=== PATIENT | female | born 1940 | race Two or more races ===

== ENCOUNTER 2024-04-16 08:45 | Inpatient (IN) | payer OTHER ==
[~2024-04-16] VITALS: Ht 91.4 cm; Wt 51.3 kg
[2024-04-16 11:03] VITALS: BP 150/83
[2024-04-16] MEDS ORDERED: [UNRECOGNIZED DRUG - OTHER] (11:04)
[2024-04-16] MEDS ORDERED: COZAAR100 MG PO (11:04)
[2024-04-16] MEDS ORDERED: TREXALL5 MG (11:05)
[2024-04-16] MEDS ORDERED: SIMVASTATIN10 MG PO (11:06)
[2024-04-16 11:44] LABS: RH POSITIVE
[2024-04-16] MEDS ORDERED: NORVASC2.5 MG PO (13:41)
[2024-04-19] MEDS ORDERED: RINGERS SOLUTION,LACTATED 1,000 ML IV SCH (15:15)
[2024-04-19] MEDS ORDERED: MORPHINE SULFATE 4 MG/ML CARTRIDGE IV PRN (15:15)
[2024-04-19] MEDS ORDERED: KETOROLAC TROMETHAMINE 30 MG VIAL IV ONE (15:15)
[2024-04-19] MEDS ORDERED: THROMBIN,HU/FIBRINOGEN/CALCIUM 4 ML SYRINGE TOP ONE (15:45)
[2024-04-19] MEDS ORDERED: METRONIDAZOLE/SODIUM CHLORIDE 500 MG/100 ML PIGGYBACK IV ONE (15:45)
[2024-04-19] MEDS ORDERED: CEFAZOLIN SODIUM 1,000 MG VIAL IV ONE (15:45)
[2024-04-19] MEDS ORDERED: HEMOSTATIC MATRIX WITH THROMBIN KIT TOP ONE (15:45)
[2024-04-19] MEDS ORDERED: hydrALAZINE HCL 20 MG VIAL IV ONE (16:00)
[2024-04-19] MEDS ORDERED: MORPHINE SULFATE 4 MG/ML VIAL IV ONE (16:05)
[2024-04-19 16:37] LABS: HEMATOCRIT 36.3 % (36.0-45.00); HEMOGLOBIN 12.3 g/dL (12.0-15.00); MEAN CORPUSCULAR HEMOGLOBIN 30.1 pg (27.00-32.0); MEAN CORPUSCULAR HGB CONC 33.8 g/dl (32.0-36.0); PLATELET COUNT 338 K/uL (150-450); RED BLOOD COUNT 4.08 M/uL (4.00-6.00); RED CELL DISTRIBUTION WIDTH 13.6 % (11.5-14.5)
[2024-04-19 17:00] LABS: ALBUMIN 2.7 gm/dL (3.4-5.0); CREATININE SERUM 0.58 mg/dL (0.55-1.02); GFR 99.28; POTASSIUM 3.42 mEq/L (3.5-5.1)
[2024-04-19] MEDS ORDERED: METOCLOPRAMIDE HCL 5 MG/ML VIAL IV SCH (17:00)
[2024-04-19] MEDS ORDERED: CEFAZOLIN SODIUM 1,000 MG VIAL IV SCH (17:00)
[2024-04-19] MEDS ORDERED: SIMETHICONE 125 MG CAPSULE PO SCH (17:00)
[2024-04-19] MEDS ORDERED: ACETAMINOPHEN 500 MG GEL..CAP PO SCH (18:00)
[2024-04-19] MEDS ORDERED: FAMOTIDINE/PF 20 MG/2 ML VIAL IV PUSH SCH (21:00)
[2024-04-19] MEDS ORDERED: GABAPENTIN 300 MG CAPSULE PO SCH (21:00)
[2024-04-19] MEDS ORDERED: DOCUSATE SODIUM 100MG CAP PO SCH (21:00)
[2024-04-19 21:59] VITALS: BP 114/87; O2SAT 95
[2024-04-20] VITALS: BP 109/66; O2SAT 96
[2024-04-20 06:45] LABS: HEMOGLOBIN 11.6 g/dL (12.0-15.00); MEAN CELL VOLUME 88.2 fL (80.00-100.00); MEAN CORPUSCULAR HEMOGLOBIN 30.1 pg (27.00-32.0); MEAN CORPUSCULAR HGB CONC 34.1 g/dl (32.0-36.0); PLATELET COUNT 330 K/uL (150-450); RED BLOOD COUNT 3.85 M/uL (4.00-6.00); RED CELL DISTRIBUTION WIDTH 13.8 % (11.5-14.5)
[2024-04-20 07:12] LABS: ALBUMIN 2.7 gm/dL (3.4-5.0); CALCIUM 8.7 mg/dL (8.5-10.1); CREATININE SERUM 0.48 mg/dL (0.55-1.02); GFR 123.51; PHOSPHOROUS 3.8 mg/dL (2.5-4.9); POTASSIUM 3.84 mEq/L (3.5-5.1)
[2024-04-20] MEDS ORDERED: ENOXAPARIN SODIUM 30 MG/0.3 ML SYRINGE SUBCUTANEO SCH (09:00)
[2024-04-20] MEDS ORDERED: DEXTROSE 50 % IN WATER 0.5 G/ML DISP.SYRIN IV PRN (09:15)
[2024-04-20] MEDS ORDERED: INSULIN LISPRO 1,000 UNIT/10 ML UNITS SUBCUTANEO PRN (09:15)
[2024-04-20 09:37] VITALS: BP 113/69; O2SAT 96
[2024-04-20] MEDS ORDERED: AMLODIPINE BESYLATE 2.5 MG TABLET PO NR (11:00)
[2024-04-20] MEDS ORDERED: LOSARTAN POTASSIUM 100 MG TABLET PO NR (11:00)
[2024-04-20 16:00] VITALS: BP 124/74; O2SAT 96
[2024-04-20] MEDS ORDERED: TRAMADOL HCL 50 MG TABLET PO SCH (18:00)
[2024-04-21 00:18] VITALS: BP 119/65; O2SAT 94
[2024-04-21 08:28] VITALS: BP 127/73; O2SAT 98
[2024-04-21] MEDS ORDERED: LOSARTAN POTASSIUM 100 MG TABLET PO SCH (09:00)
[2024-04-21] MEDS ORDERED: AMLODIPINE BESYLATE 2.5 MG TABLET PO SCH (09:00)
== END 2024-04-21 14:32 | disposition home or self-care (01) | DRG 741 ==
LOC: O/R 04-19 06:30 → SURG 04-19 06:30 → OB/GYN 04-19 08:45 → SURG 04-19 19:02 → OB/GYN 04-19 20:15 → SURG 04-21 14:32
PROVIDERS: Obstetrics & Gynecology; ADMIT Obstetrics & Gynecology Gynecologic Oncology; ATTEND Obstetrics & Gynecology Gynecologic Oncology
PROC: 0UT70ZZ Resection of Bilateral Fallopian Tubes, Open Approach (ICD-10-PCS; 2024-04-19)
PROC: 07BC0ZZ Excision of Pelvis Lymphatic, Open Approach (ICD-10-PCS; 2024-04-19)
PROC: 0UT20ZZ Resection of Bilateral Ovaries, Open Approach (ICD-10-PCS; 2024-04-19)
PROC: 0UT90ZZ Resection of Uterus, Open Approach (ICD-10-PCS; principal; 2024-04-19 20:15)
DX: C54.1 Malignant neoplasm of endometrium (principal); Z20.822 Contact with and (suspected) exposure to COVID-19; C57.3 Malignant neoplasm of parametrium

== ENCOUNTER 2024-08-29 17:51 | Inpatient (IN) | payer OTHER ==
[~2024-08-29] VITALS: Ht 152.4 cm; Wt 83.0 kg
[~2024-08-29 17:51] MED LIST: COZAAR100 MG PO; NORVASC2.5 MG PO; SIMVASTATIN10 MG PO; TREXALL5 MG; [UNRECOGNIZED DRUG - OTHER]
[2024-08-29] MEDS ORDERED: 0.9 % SODIUM CHLORIDE 1,000 ML IV SCH (18:15)
[2024-08-29 18:31] LABS: HEMATOCRIT 43.2 % (36.0-45.00); HEMOGLOBIN 13.7 g/dL (12.0-15.00); MEAN CELL VOLUME 87.2 fL (80.00-100.00); MEAN CORPUSCULAR HEMOGLOBIN 27.6 pg (27.00-32.0); MEAN CORPUSCULAR HGB CONC 31.7 g/dl (32.0-36.0); PLATELET COUNT 437 K/uL (150-450); RED BLOOD COUNT 4.96 M/uL (4.00-6.00)
[2024-08-29 19:04] LABS: ABG PH 7.427 (7.35-7.45); ABG PO2 71.9 mmHg (80-100); ABG pCO2 46.8 mmHg (35-45); BASE EXCESS 4.9 mmol/l; BICARBONATE 30.2 mmol/l (23-25); SaO2 94.9 %; Tco2 31.6 mmol/l; o2 21 %
[2024-08-29 19:05] LABS: allen test SATISFACTORY; mode ROOM AIR; puncture site RADIAL RIGHT
[2024-08-29 19:07] LABS: ALBUMIN 2.8 gm/dL (3.4-5.0); BILIRUBIN TOTAL 0.36 mg/dL (0.3-1.2); CALCIUM 10.1 mg/dL (8.5-10.1); CREATININE SERUM 0.42 mg/dL (0.55-1.02); GFR 144.09; GLOBULINA 3.9 G/DL (2.4-3.5); POTASSIUM 4.03 mEq/L (3.5-5.1); TOTAL PROTEIN 6.7 gm/dL (6.4-8.2)
[2024-08-29] MEDS ORDERED: ACETAMINOPHEN 500 MG GEL..CAP PO ONE ×2 (21:45→21:59)
[2024-08-29] MEDS ORDERED: METHYLPREDNISOLONE SOD SUCC 40 MG VIAL IV SCH (22:05)
[2024-08-29] MEDS ORDERED: LEVALBUTEROL HCL 1.25 MG/3 ML SOLUTION IH SCH (22:06)
[2024-08-29] MEDS ORDERED: IPRATROPIUM BROMIDE 0.5 MG/2.5 ML AMPUL.NEB IH SCH (22:13)
[2024-08-29] MEDS ORDERED: ACETAMINOPHEN 500 MG GEL..CAP PO PRN (22:15)
[2024-08-29 23:49] LABS: COVID-19 AG NEGATIVE (NEGATIVE)
[2024-08-29 23:52] LABS: INFLUENZA A AG NEGATIVE (NEGATIVE)
[2024-08-30] VITALS (7 sets, daily range): BP systolic 110–138; BP diastolic 60–67; O2SAT 96–98
[2024-08-30] MEDS ORDERED: PIPERACILLIN/TAZOBACTAM SODIUM 3.375 GM in DEXTROSE 5 % IN WATER 100 ML IV SCH
[2024-08-30] MEDS ORDERED: FAMOTIDINE/PF 20 MG in 0.9 % SODIUM CHLORIDE 8 ML IV PUSH SCH (09:00)
[2024-08-30] MEDS ORDERED: LOSARTAN POTASSIUM 100 MG TABLET PO SCH (09:00)
[2024-08-30 10:54] LABS: D DIMER 1.55 MG/L; INR 1.02; PROTHROMBIN TIME 11.1 SECONDS (9.0-11.5)
[2024-08-30 11:21] LABS: COVID-19 AG NEGATIVE (NEGATIVE)
[2024-08-30] MEDS ORDERED: PIPERACILLIN/TAZOBACTAM SODIUM 3.375 GM VIAL IV ONE (16:33)
[2024-08-30] MEDS ORDERED: SIMVASTATIN 10 MG TABLET PO SCH (17:00)
[2024-08-30] MEDS ORDERED: LORazepam 2 MG/ML VIAL IV ONE (23:45)
[2024-08-31] VITALS (9 sets, daily range): BP systolic 134–171; BP diastolic 70–83; O2SAT 96–100
[2024-08-31] MEDS ORDERED: Cyanocobalamin/Mecobalamin 1 TAB.SL SL NR (14:30)
[2024-08-31] MEDS ORDERED: VITAMIN B COMPLEX/LYSINE 15 ML BLIST.PACK PO NR (14:30)
[2024-08-31] MEDS ORDERED: FOLIC ACID 1 MG TABLET PO NR (14:30)
[2024-08-31 14:59] LABS: URINE APPEARANCE Clear; URINE BILIRRUBIN Negative (NEGATIVE); URINE BLOOD Small; URINE COLOR Yellow; URINE GLUCOSE Negative (NEGATIVE); URINE LEUKOCYTE Negative; URINE NITRATE Negative; URINE PROTEIN 30 (NEGATIVE); URINE UROBILINOGEN 0.2 E.U./dl
[2024-08-31 15:02] LABS: URINE BACTERIA 460.2 uL (0.0-1933); URINE CAST 2.65 uL (0.0-1.40); URINE WBC 8.8 uL (0.0-23.2)
[2024-08-31 15:26] LABS: URINE KETONE 40 (NEGATIVE)
[2024-08-31] MEDS ORDERED: SOD FERRIC GLUC COMPLX/SUCROSE 62.5 MG/5 ML AMPUL IV ONE (16:34)
[2024-08-31] MEDS ORDERED: PIPERACILLIN/TAZOBACTAM SODIUM 3.375 GM VIAL IV ONE (16:35)
[2024-08-31] MEDS ORDERED: SOD FERRIC GLUC COMPLX/SUCROSE 62.5 MG in 0.9 % SODIUM CHLORIDE 50 ML IV SCH (17:00)
[2024-08-31] MEDS ORDERED: LACTOBACILLUS ACIDOPHILUS 1 CAP CAP PO SCH (17:00)
[2024-08-31] MEDS ORDERED: PYRIDOSTIGMINE BROMIDE 60 MG TABLET PO SCH (17:00)
[2024-08-31] MEDS ORDERED: AMINO ACIDS 1 EACH TABLET PO SCH (17:00)
[2024-09-01] VITALS (7 sets, daily range): BP systolic 115–144; BP diastolic 65–81; O2SAT 91–99
[2024-09-01 07:36] LABS: HEMATOCRIT 36.5 % (36.0-45.00); HEMOGLOBIN 11.9 g/dL (12.0-15.00); MEAN CELL VOLUME 87.3 fL (80.00-100.00); MEAN CORPUSCULAR HEMOGLOBIN 28.5 pg (27.00-32.0); MEAN CORPUSCULAR HGB CONC 32.6 g/dl (32.0-36.0); PLATELET COUNT 326 K/uL (150-450); RED BLOOD COUNT 4.18 M/uL (4.00-6.00); RED CELL DISTRIBUTION WIDTH 16.6 % (11.5-14.5)
[2024-09-01 08:16] LABS: ALBUMIN 2.5 gm/dL (3.4-5.0); BILIRUBIN TOTAL 0.36 mg/dL (0.3-1.2); CALCIUM 9.2 mg/dL (8.5-10.1); MAGNESIUM 1.9 mg/dL (1.8-2.4); PHOSPHOROUS 2.5 mg/dL (2.5-4.9); POTASSIUM 3.22 mEq/L (3.5-5.1); TOTAL PROTEIN 5.5 gm/dL (6.4-8.2)
[2024-09-01 08:56] LABS: GFR 320.64
[2024-09-01] MEDS ORDERED: Cyanocobalamin/Mecobalamin 1 TAB.SL SL SCH (09:00)
[2024-09-01] MEDS ORDERED: FOLIC ACID 1 MG TABLET PO SCH (09:00)
[2024-09-01] MEDS ORDERED: ENOXAPARIN SODIUM 40 MG/0.4 ML SYRINGE SUBCUTANEO SCH (09:00)
[2024-09-01] MEDS ORDERED: VITAMIN B COMPLEX/LYSINE 15 ML BLIST.PACK PO SCH (09:00)
[2024-09-01 09:02] LABS: C-REACTIVE PROTEIN 0.93 MG/DL (0.00-0.29); CREATININE SERUM 0.21 mg/dL (0.55-1.02)
[2024-09-02 00:42] VITALS: O2SAT 98
[2024-09-02 02:10] VITALS: BP 153/78; O2SAT 100
[2024-09-02 08:00] VITALS: BP 157/77; O2SAT 98
[2024-09-02] MEDS ORDERED: DEXTROSE 5 %-0.45 % SOD CHLORD 1,000 ML IV SCH (14:00)
[2024-09-02 16:49] VITALS: O2SAT 96
[2024-09-02 17:19] VITALS: BP 164/86
[2024-09-02 19:31] VITALS: O2SAT 99
[2024-09-03] VITALS (9 sets, daily range): BP systolic 160–165; BP diastolic 69–81; O2SAT 97–100
[2024-09-03 07:02] LABS: ALBUMIN 2.6 gm/dL (3.4-5.0); BILIRUBIN TOTAL 0.57 mg/dL (0.3-1.2); CALCIUM 9.7 mg/dL (8.5-10.1); GLOBULINA 3.1 G/DL (2.4-3.5); TOTAL PROTEIN 5.7 gm/dL (6.4-8.2)
[2024-09-03 07:34] LABS: CREATININE SERUM 0.19 mg/dL (0.55-1.02); GFR 359.91
[2024-09-03 07:36] LABS: POTASSIUM 2.81 mEq/L (3.5-5.1)
[2024-09-03] MEDS ORDERED: POTASSIUM CHLORIDE IN WATER 40 MEQ/100 ML PIGGYBAG IV STA (10:15)
[2024-09-03] MEDS ORDERED: AMPICILLIN SODIUM/SULBACTAM NA 3,000 MG VIAL IV SCH (18:00)
[2024-09-04] VITALS (9 sets, daily range): BP systolic 150–175; BP diastolic 75–85; O2SAT 93–98
[2024-09-04 14:58] LABS: HEMATOCRIT 43.1 % (36.0-45.00); HEMOGLOBIN 13.8 g/dL (12.0-15.00); MEAN CELL VOLUME 87.5 fL (80.00-100.00); PLATELET COUNT 277 K/uL (150-450); RED BLOOD COUNT 4.92 M/uL (4.00-6.00); RED CELL DISTRIBUTION WIDTH 16.3 % (11.5-14.5)
[2024-09-04 15:22] LABS: ALBUMIN 2.6 gm/dL (3.4-5.0); ALKALINE PHOSPHATASE 82 U/L (50-136); ALT/SGPT 62 U/L (12-78); AST/SGOT 31 U/L (15-37); BILIRUBIN TOTAL 0.59 mg/dL (0.3-1.2); BLOOD UREA NITROGEN 15 mg/dL (7-18); CALCIUM 9.3 mg/dL (8.5-10.1); CHLORIDE 100 mmol/L (98-107); GLOBULINA 3.2 G/DL (2.4-3.5); GLUCOSE FASTING 120 mg/dL (65-100); OSMOLALITY SERUM 289 MOSM/KG (275-295); POTASSIUM 3.02 mEq/L (3.5-5.1); SODIUM 144 mmol/L (136-145); TOTAL PROTEIN 5.8 gm/dL (6.4-8.2)
[2024-09-04 16:34] LABS: ANION GAP 4 (10.0-20.0); BUN CREA RATIO 100 (7.0-25.0); C-REACTIVE PROTEIN 0.85 MG/DL (0.00-0.29); GFR 472.81; PHOSPHOROUS 1.4 mg/dL (2.5-4.9)
[2024-09-04 16:35] LABS: CARBON DIOXIDE 43 mEq/L (21-32)
[2024-09-04] MEDS ORDERED: POTASSIUM PHOS,M-BASIC-D-BASIC 3 MM/ML VIAL IV NR (17:00)
[2024-09-04 18:58] LABS: CREATININE SERUM < 0.15 mg/dL (0.55-1.02)
[2024-09-04 23:40] LABS: ABG pCO2 55.1 mmHg (35-45)
[2024-09-04 23:41] LABS: BASE EXCESS 14.9 mmol/l; Tco2 42.7 mmol/l; o2 21 %
[2024-09-04 23:42] LABS: ABG PO2 78.4 mmHg (80-100); allen test SATISFACTORY; mode ROOM AIR; puncture site RADIAL RIGHT
[2024-09-05] VITALS (10 sets, daily range): BP systolic 127–174; BP diastolic 56–100; O2SAT 93–100
[2024-09-05] MEDS ORDERED: hydrALAZINE HCL 25 MG TABLET PO SCH (01:00)
[2024-09-05] MEDS ORDERED: FAMOTIDINE/PF 20 MG in 0.9 % SODIUM CHLORIDE 8 ML IV PUSH SCH (01:38)
[2024-09-05 06:25] LABS: URINE APPEARANCE Clear; URINE BILIRRUBIN Negative (NEGATIVE); URINE BLOOD Moderate; URINE COLOR Yellow; URINE GLUCOSE Negative (NEGATIVE); URINE KETONE 15 (NEGATIVE); URINE LEUKOCYTE Negative; URINE NITRATE Negative; URINE PROTEIN Trace (NEGATIVE); URINE UROBILINOGEN 0.2 E.U./dl
[2024-09-05 06:29] LABS: URINE EPITHELIAL CELLS 4.7 uL (0.0-38.8); URINE RBC 630.1 uL (0.0-20.8); URINE WBC 11.3 uL (0.0-23.2)
[2024-09-05 07:49] LABS: URINE BACTERIA 3.6 uL (0.0-1933); URINE CAST 0.14 uL (0.0-1.40); URINE YEAST MANY /hpf
[2024-09-05] MEDS ORDERED: ACETAZOLAMIDE SODIUM IV SCH (10:13)
[2024-09-05] MEDS ORDERED: SODIUM CHLORIDE 0.9% IV SCH (10:13)
[2024-09-05 13:11] LABS: HEMOGLOBIN 14.9 g/dL (12.0-15.00); MEAN CELL VOLUME 86.6 fL (80.00-100.00); MEAN CORPUSCULAR HEMOGLOBIN 28.6 pg (27.00-32.0); MEAN CORPUSCULAR HGB CONC 33.1 g/dl (32.0-36.0); PLATELET COUNT 263 K/uL (150-450); RED CELL DISTRIBUTION WIDTH 16.8 % (11.5-14.5)
[2024-09-05 13:29] LABS: LIPASE 14 U/L (13-75)
[2024-09-05 13:30] LABS: AMYLASE 14 U/L (25-115)
[2024-09-05 13:39] LABS: BLOOD UREA NITROGEN 12 mg/dL (7-18); CARBON DIOXIDE 38 mEq/L (21-32); CHLORIDE 97 mmol/L (98-107); GLUCOSE FASTING 145 mg/dL (65-100); OSMOLALITY SERUM 282 MOSM/KG (275-295); SODIUM 140 mmol/L (136-145)
[2024-09-05 13:59] LABS: ANION GAP 8 (10.0-20.0); BUN CREA RATIO 80 (7.0-25.0); CREATININE SERUM < 0.15 mg/dL (0.55-1.02); GFR 472.81
[2024-09-05 14:00] LABS: PHOSPHOROUS 1.9 mg/dL (2.5-4.9)
[2024-09-05] MEDS ORDERED: POTASSIUM PHOS,M-BASIC-D-BASIC 18 MM in 0.9 % SODIUM CHLORIDE 250 ML IV NR (14:30)
[2024-09-05] MEDS ORDERED: POTASSIUM CHLORIDE IN WATER 100 ML IV NR (14:30)
[2024-09-05] MEDS ORDERED: POTASSIUM PHOS,M-BASIC-D-BASIC 18 MM in 0.9 % SODIUM CHLORIDE 500 ML IV NR (16:00)
[2024-09-05] MEDS ORDERED: ACETAZOLAMIDE SODIUM 500 MG VIAL IV SCH (17:00)
[2024-09-06] VITALS (10 sets, daily range): BP systolic 90–115; BP diastolic 55–72; O2SAT 95–100
[2024-09-06 11:55] LABS: HEMATOCRIT 43.4 % (36.0-45.00); MEAN CORPUSCULAR HGB CONC 32.2 g/dl (32.0-36.0); PLATELET COUNT 248 K/uL (150-450); RED BLOOD COUNT 4.99 M/uL (4.00-6.00); RED CELL DISTRIBUTION WIDTH 16.6 % (11.5-14.5)
[2024-09-06 15:31] LABS: CALCIUM 8.9 mg/dL (8.5-10.1); MAGNESIUM 1.8 mg/dL (1.8-2.4); PHOSPHOROUS 2.7 mg/dL (2.5-4.9)
[2024-09-06 15:52] LABS: GFR 250.6
[2024-09-06 15:55] LABS: POTASSIUM 2.85 mEq/L (3.5-5.1)
[2024-09-06 18:02] LABS: CREATININE SERUM 0.26 mg/dL (0.55-1.02)
[2024-09-07] VITALS (10 sets, daily range): BP systolic 103–131; BP diastolic 59–83; O2SAT 94–100
[2024-09-07 06:38] LABS: HEMATOCRIT 41.2 % (36.0-45.00); HEMOGLOBIN 13.3 g/dL (12.0-15.00); MEAN CORPUSCULAR HEMOGLOBIN 28.4 pg (27.00-32.0); MEAN CORPUSCULAR HGB CONC 32.2 g/dl (32.0-36.0); PLATELET COUNT 177 K/uL (150-450); RED BLOOD COUNT 4.68 M/uL (4.00-6.00); RED CELL DISTRIBUTION WIDTH 16.9 % (11.5-14.5)
[2024-09-07] MEDS ORDERED: PYRIDOSTIGMINE BROMIDE 60 MG TABLET PO SCH (10:07)
[2024-09-07] MEDS ORDERED: FAMOTIDINE/PF 20 MG/2 ML VIAL ONE (10:09)
[2024-09-07 12:27] LABS: ALBUMIN 2.3 gm/dL (3.4-5.0); BILIRUBIN TOTAL 0.67 mg/dL (0.3-1.2); CALCIUM 9.4 mg/dL (8.5-10.1); GFR 250.6; GLOBULINA 3.5 G/DL (2.4-3.5); MAGNESIUM 1.9 mg/dL (1.8-2.4); PHOSPHOROUS 2.3 mg/dL (2.5-4.9); POTASSIUM 3.21 mEq/L (3.5-5.1); TOTAL PROTEIN 5.8 gm/dL (6.4-8.2)
[2024-09-07 12:28] LABS: CREATININE SERUM 0.26 mg/dL (0.55-1.02)
[2024-09-07] MEDS ORDERED: FLUCONAZOLE IN NACL,ISO-OSM 400 MG/200 ML PIGGYBAG IV NR (13:30)
[2024-09-07 15:31] LABS: PH,URINE 8.5 (5.0-8.0); URINE APPEARANCE Turbid; URINE BILIRRUBIN Negative (NEGATIVE); URINE BLOOD Trace; URINE COLOR Dark Yellow; URINE GLUCOSE Negative (NEGATIVE); URINE KETONE Negative (NEGATIVE); URINE LEUKOCYTE Small; URINE NITRATE Negative; URINE PROTEIN 30 (NEGATIVE); URINE UROBILINOGEN 0.2 E.U./dl
[2024-09-07 15:34] LABS: URINE BACTERIA 358.4 uL (0.0-1933); URINE EPITHELIAL CELLS 3.7 uL (0.0-38.8); URINE RBC 55.3 uL (0.0-20.8); URINE WBC 86.7 uL (0.0-23.2)
[2024-09-07 15:36] LABS: URINE CAST 0.58 uL (0.0-1.40)
[2024-09-07] MEDS ORDERED: POTASSIUM CHLORIDE IN WATER 100 ML IV NR (17:00)
[2024-09-08] VITALS (11 sets, daily range): BP systolic 112–135; BP diastolic 64–79; O2SAT 95–100
[2024-09-08] MEDS ORDERED: FLUCONAZOLE IN NACL,ISO-OSM 100 ML IV SCH (12:00)
[2024-09-08] MEDS ORDERED: PYRIDOSTIGMINE BROMIDE 60 MG TABLET PO SCH (21:00)
[2024-09-09] VITALS (9 sets, daily range): BP systolic 101–130; BP diastolic 55–68; O2SAT 96–100
[2024-09-09] MEDS ORDERED: PYRIDOSTIGMINE BROMIDE 60 MG TABLET PO SCH (09:00)
[2024-09-10] VITALS (9 sets, daily range): BP systolic 104–134; BP diastolic 58–78; O2SAT 98–100
[2024-09-10 07:03] LABS: HEMATOCRIT 35.7 % (36.0-45.00); HEMOGLOBIN 11.7 g/dL (12.0-15.00); MEAN CELL VOLUME 87.5 fL (80.00-100.00); MEAN CORPUSCULAR HEMOGLOBIN 28.8 pg (27.00-32.0); MEAN CORPUSCULAR HGB CONC 32.8 g/dl (32.0-36.0); PLATELET COUNT 325 K/uL (150-450); RED BLOOD COUNT 4.07 M/uL (4.00-6.00); RED CELL DISTRIBUTION WIDTH 17.1 % (11.5-14.5)
[2024-09-10 07:47] LABS: ALBUMIN 2.1 gm/dL (3.4-5.0); BILIRUBIN TOTAL 0.33 mg/dL (0.3-1.2); CALCIUM 9.3 mg/dL (8.5-10.1); GLOBULINA 3.2 G/DL (2.4-3.5); MAGNESIUM 2.3 mg/dL (1.8-2.4); PHOSPHOROUS 3.6 mg/dL (2.5-4.9); POTASSIUM 3.83 mEq/L (3.5-5.1); TOTAL PROTEIN 5.3 gm/dL (6.4-8.2)
[2024-09-10 07:55] LABS: GFR 320.64
[2024-09-10 07:56] LABS: C-REACTIVE PROTEIN 4.47 MG/DL (0.00-0.29); CREATININE SERUM 0.21 mg/dL (0.55-1.02)
[2024-09-10] MEDS ORDERED: FAMOTIDINE/PF 20 MG/2 ML VIAL IV SCH (21:00)
[2024-09-11] VITALS (9 sets, daily range): BP systolic 125–150; BP diastolic 67–71; O2SAT 92–100
[2024-09-12] VITALS (8 sets, daily range): BP systolic 81–128; BP diastolic 52–55; O2SAT 96–100
[2024-09-12 08:33] LABS: HEMOGLOBIN 11.8 g/dL (12.0-15.00); MEAN CELL VOLUME 88.3 fL (80.00-100.00); MEAN CORPUSCULAR HEMOGLOBIN 28.2 pg (27.00-32.0); MEAN CORPUSCULAR HGB CONC 31.9 g/dl (32.0-36.0); PLATELET COUNT 336 K/uL (150-450); RED CELL DISTRIBUTION WIDTH 17.2 % (11.5-14.5)
[2024-09-12] MEDS ORDERED: PREDNISONE 20 MG TABLET PO SCH (09:00)
[2024-09-12 09:18] LABS: BILIRUBIN TOTAL 0.32 mg/dL (0.3-1.2); CALCIUM 9.6 mg/dL (8.5-10.1); GLOBULINA 3.1 G/DL (2.4-3.5); MAGNESIUM 2.5 mg/dL (1.8-2.4); PHOSPHOROUS 3.4 mg/dL (2.5-4.9); POTASSIUM 3.57 mEq/L (3.5-5.1); TOTAL PROTEIN 5.1 gm/dL (6.4-8.2)
[2024-09-12 09:19] LABS: C-REACTIVE PROTEIN 2.84 MG/DL (0.00-0.29); CREATININE SERUM 0.2 mg/dL (0.55-1.02); GFR 339.23
[2024-09-13] VITALS (10 sets, daily range): BP systolic 106–120; BP diastolic 65–73; O2SAT 90–100
[2024-09-14] VITALS (7 sets, daily range): BP systolic 103–121; BP diastolic 56–72; O2SAT 95–100
[2024-09-15 02:03] VITALS: BP 129/72; O2SAT 96
[2024-09-15 09:48] VITALS: BP 133/73; O2SAT 97
[2024-09-15 17:44] VITALS: BP 126/66; O2SAT 93
[2024-09-16 03:43] VITALS: BP 134/77; O2SAT 96
[2024-09-16 09:07] VITALS: BP 120/62; O2SAT 97
[2024-09-16 17:47] VITALS: BP 117/60; O2SAT 98
[2024-09-17 03:35] VITALS: BP 95/56
[2024-09-17 10:05] VITALS: BP 106/58; O2SAT 96
[2024-09-17] MEDS ORDERED: IPRATROPIU0.2 MG/1 M IH (14:25)
[2024-09-17] MEDS ORDERED: XOPENEX CO1.25 MG/0. IH (14:26)
[2024-09-17] MEDS ORDERED: MESTINON60 M1 PO (14:26)
[2024-09-17] MEDS ORDERED: SIMVASTATIN10 MG PO (14:27)
[2024-09-17] MEDS ORDERED: PRE PROTEIN1 EACH PO (14:27)
[2024-09-17] MEDS ORDERED: HYDRALAZINE HCL25 MG PO (14:27)
[2024-09-17] MEDS ORDERED: LOSARTAN POTAS100 MG PO (14:27)
[2024-09-17] MEDS ORDERED: PREDNISONE20 MG PO (14:28)
[2024-09-17] MEDS ORDERED: FOLIC ACID1 MG PO (14:28)
[2024-09-17] MEDS ORDERED: INTESTINEX680 M1 PO (14:28)
[2024-09-17] MEDS ORDERED: APETIGEN P12.5 MG/15 PO (14:28)
== END 2024-09-17 17:39 | disposition home or self-care (01) | DRG 177 ==
LOC: ER 17:51 → MEDI 22:15 → SEC-K 22:15 → MEDI 08-30 00:09 → MEDJ 09-01 14:28
PROVIDERS: General Practice; Internal Medicine; Internal Medicine Infectious Disease; Psychiatry & Neurology Clinical Neurophysiology; Specialist; ADMIT Internal Medicine; ATTEND Internal Medicine
PROC: BB24ZZZ Computerized Tomography (CT Scan) of Bilateral Lungs (ICD-10-PCS; principal; 2024-08-29)
PROC: B020ZZZ Computerized Tomography (CT Scan) of Brain (ICD-10-PCS; 2024-08-29)
PROC: B246ZZZ Ultrasonography of Right and Left Heart (ICD-10-PCS; 2024-08-29)
PROC: 3E0F7GC Introduction of Other Therapeutic Substance into Respiratory Tract, Via Natural or Artificial Opening (ICD-10-PCS; 2024-08-30)
PROC: 4A12X4Z Monitoring of Cardiac Electrical Activity, External Approach (ICD-10-PCS; 2024-08-30)
PROC: 8E0ZXY6 Isolation (ICD-10-PCS; 2024-09-01)
PROC: 0DH673Z Insertion of Infusion Device into Stomach, Via Natural or Artificial Opening (ICD-10-PCS; 2024-09-05)
DX: J69.0 Pneumonitis due to inhalation of food and vomit (principal); G70.01 Myasthenia gravis with (acute) exacerbation; C79.51 Secondary malignant neoplasm of bone; B37.49 Other urogenital candidiasis; J98.11 Atelectasis; E87.3 Alkalosis; E87.6 Hypokalemia; C54.1 Malignant neoplasm of endometrium; I35.0 Nonrheumatic aortic (valve) stenosis; M62.81 Muscle weakness (generalized); R13.19 Other dysphagia; E78.5 Hyperlipidemia, unspecified; H02.403 Unspecified ptosis of bilateral eyelids; B95.2 Enterococcus as the cause of diseases classified elsewhere; R42 Dizziness and giddiness